=== PATIENT | male | born 1965 | race Caucasian/White ===

== ENCOUNTER → 2023-05-07 | Outpatient (CLI) | payer OTHER | LOC: M RAD 07:36 | PROVIDERS: ATTEND Internal Medicine Gastroenterology | DX: K74.60 Unspecified cirrhosis of liver (principal); R16.0 Hepatomegaly, not elsewhere classified; R79.89 Other specified abnormal findings of blood chemistry; Z86.010 Personal history of colon polyps; A04.8 Other specified bacterial intestinal infections; K76.89 Other specified diseases of liver ==